=== PATIENT | female | born 1955 | race American Indian/Alaskan Native ===

== ENCOUNTER 2020-10-14 12:54 | Outpatient (CLI) | payer MEDICARE ==
--- NOTE | 2020-10-14 14:20 | XRay Report ---
BILATERAL KNEES STANDING 2 VIEWS INDICATION / CLINICAL INFORMATION: BILATERAL KNEE PAIN. COMPARISON: None available. FINDINGS: Severe medial and lateral degenerative change in both knees. Signer Name: Quentin Pena MD FACMatthew Signed: 10/14/2020 2:15 PM Workstation Name: [id number]
== END 2020-10-14 12:55 | disposition home or self-care (01) ==
LOC: XRAY 12:54
PROVIDERS: ATTEND Orthopaedic Surgery
DX: M17.0 Bilateral primary osteoarthritis of knee (principal)
CPT/HCPCS: 73565